=== PATIENT | male | born 1970 | race Caucasian/White ===

== ENCOUNTER → 2019-10-03 | Outpatient (CLI) | payer BC ==
[~2019-10-03] MED LIST: DORYX150 MG PO
== END ==
LOC: COL.RAD 13:07
DX: M19.012 Primary osteoarthritis, left shoulder (principal); M25.712 Osteophyte, left shoulder; M25.812 Other specified joint disorders, left shoulder
CPT/HCPCS: A9585; Q9967

== ENCOUNTER → 2020-07-02 | Outpatient (CLI) | payer BC | LOC: COL.RAD 08:53 | DX: M19.012 Primary osteoarthritis, left shoulder (principal); M19.071 Primary osteoarthritis, right ankle and foot; R60.0 Localized edema; S42.209A Unspecified fracture of upper end of unspecified humerus, initial encounter for closed fracture; M54.10 Radiculopathy, site unspecified | CPT/HCPCS: A9503 ==